=== PATIENT | female | born 1980 | race African-American/Black ===

== ENCOUNTER 2020-06-09 23:45 | Inpatient (IN) | payer OTHER ==
[2020-06-10] MEDS ORDERED: ELECTROLYTE-148 SOLN 1,000 ML IV SCH (00:15)
--- NOTE | 2020-06-10 00:18 | HP ---
Past Medical History - Primary Care Physician PCP:: Salma Ying - Admission Chief Complaint: 39 yo EDC 07/13/2020. EGA 35.2 wks presents to LD c/o painful UC. Known twins - transverse/transverse History of Present Illness: 39 yo EDC 07/13/2020 EGA 35.2 wks presents to LD c/o painful UC Known twins - transverse/transverse in active labor History Source: Patient Limitations to Obtaining History: No Limitations - Past Medical History Renal/: Yes: Renal Calculi ...: 4 ...Para: 3 ... Weeks Gestation by Dates: 35 ...EDC by Dates: 07/13/20 ...EDC by Sono: 07/13/20 Heme/Onc: Yes: Anemia - Past Surgical History Past Surgical History: Yes: None Hx Myomectomy: No Hx Transabdominal Cerclage: No - Smoking History Have you smoked in the past 12 months: No - Alcohol/Substance Use Hx Alcohol Use: No History of Substance Use: reports: None - Social History Usual Living Arrangement: Yes: With Spouse ADL: Independent History of Recent Travel: No Home Medications - Allergies Allergies/Adverse Reactions: Allergies Allergy/AdvReac Type Severity Reaction Status Date / Time No Known Allergies Allergy Verified 06/10/20 00:30 Family Medical History Family History: Unremarkable Review of Systems - Review of Systems Constitutional: reports: No Symptoms Eyes: reports: No Symptoms HENT: reports: No Symptoms Neck: reports: No Symptoms Cardiovascular: reports: No Symptoms Respiratory: reports: No Symptoms Gastrointestinal: reports: No Symptoms Genitourinary: reports: Pain Breasts: reports: No Symptoms Reported Musculoskeletal: reports: No Symptoms Integumentary: reports: No Symptoms Neurological: reports: No Symptoms Endocrine: reports: No Symptoms Hematology/Lymphatic: reports: No Symptoms Psychiatric: reports: No Symptoms Physical Exam - Maternity Constitutional: Yes: Well Nourished, No Distress Eyes: Yes: WNL HENT: Yes: WNL Neck: Yes: WNL Cardiovascular: Yes: WNL Breast(s): Yes: WNL - Abdominal Exam/OB Fundal Height: 38 Number of Fetuses: Multiple Presentation: Transverse Contractions: Yes Regularity: Regular Intensity: Moderate Monitor Mode: External Heart Rate (range): 130-140 Heart Rate Location: LLQ (NST reactive), RUQ Category: I Accelerations: Uniform Decelerations: None - Vaginal Exam/OB Vaginal Bleeding: No Dilatation (cm): 6 Effacement (%): 100 Amniotic Membrane Status: Bulging Presentation: Transverse/Shoulder - Physical Exam Musculoskeletal: Yes: WNL Extremities: Yes: WNL Edema: Yes Deep Tendon Reflex Grade: Normal +2 ...Motor Strength: WNL Psychiatric: Yes: WNL Hemorrhage Risk Assessment - Risk Factors Medium Risk Factors: Yes: Multiple gestation, Greater than 4 previous births Risk Score: 2 Risk Level: High Risk Problem List - Problems (1) AMA (advanced maternal age) multigravida 35+ Code(s): O09.529 - SUPERVISION OF ELDERLY MULTIGRAVIDA, UNSPECIFIED TRIMESTER (2) Twin gestation in third trimester Code(s): O30.003 - TWIN PREG, UNSP NUM PLCNTA & AMNIO SACS, THIRD TRIMESTER (3) 35 weeks gestation of Code(s): Z3A.35 - 35 WEEKS GESTATION OF (4) Malpresentation before onset of labor Code(s): O32.9XX0 - MATERNAL CARE FOR MALPRESENTATION OF FETUS, UNSP, UNSP Assessment/Plan Admit to LD Cesarian delivery Hydration Labs terbutaline 0.25cgm
[2020-06-10] MEDS ORDERED: TERBUTALINE SULFATE 1 MG/1 ML VIAL SQ ONE (00:37)
[2020-06-10 00:49] LABS: BASO % 0.2 % (0-2.0); EOS % 0.1 % (0-4.5); HEMATOCRIT 28.6 % (32.4-45.2); HEMOGLOBIN 9.6 GM/dL (10.7-15.3); LYMPH % 19.4 % (8-40); MCH 30.2 pg (25.7-33.7); MCHC 33.7 g/dl (32.0-36.0); MEAN CELL VOLUME 89.6 fl (80-96); MONO % 6.8 % (3.8-10.2); NEUT % 73.5 % (42.8-82.8); PLATELET COUNT 197 K/MM3 (134-434); RBC 3.19 M/mm3 (3.60-5.2); RDW 14.1 % (11.6-15.6); WHITE BLOOD COUNT 11.8 K/mm3 (4.0-10.0)
[2020-06-10] MEDS ORDERED: ONDANSETRON 4 MG/2 ML VIAL IVPUSH PRN (01:02)
[2020-06-10] MEDS ORDERED: IBUPROFEN 600 MG TABLET (FP) PO PRN (01:02)
[2020-06-10] MEDS ORDERED: ACETAMINOPHEN 325 MG TABLET (FP) PO PRN (01:02)
[2020-06-10 01:03] LABS: INR 0.98 (0.83-1.09); PROTHROMBIN TIME (PATIENT) 11.6 SEC (9.7-13.0)
[2020-06-10] MEDS ORDERED: morphine SULFATE/PF 0.5 MG/ML (2cc Syringe - QUVA) ONE (01:04)
[2020-06-10 01:08] LABS: BLOOD UREA NITROGEN 5.8 mg/dL (7-18); CALCIUM 8.8 mg/dL (8.5-10.1); CREATININE 0.5 mg/dL (0.55-1.3)
[2020-06-10 01:13] LABS: POTASSIUM 3.3 mmol/L (3.5-5.1)
[2020-06-10] MEDS ORDERED: OXYTOCIN 10 UNITS/ML VIAL ONE ×4 (01:21→02:03)
[2020-06-10] MEDS ORDERED: ceFAZolin SODIUM 1 GM VIAL ONE ×2 (01:21)
[2020-06-10] MEDS ORDERED: METHYLERGONOVINE MALEATE 0.2 MG/1 ML AMP IM PRN (02:07)
[2020-06-10] MEDS ORDERED: oxyCODONE HCL 5 MG TABLET PO PRN (02:07)
--- NOTE | 2020-06-10 02:18 | OP ---
Operative Note - Note: Operative Date: 06/10/20 Pre-Operative Diagnosis: 39 yo @ 35.2 wks Twin gestation transverse/transverse in labor Operation: LTCS via Pfannenstiel Incision Post-Operative Diagnosis: Same as Pre-op Surgeon: Salma Ying Customer Service Agent: Lanny Oconnor Anesthesiologist/MOLD WASHER: Jordan Nielson Anesthesia: Spinal Specimens Removed: Placenta and membranes Estimated Blood Loss (mls): 800 Fluid Volume Replaced (mls): 2,000 Operative Report Dictated: No
[2020-06-10] MEDS ORDERED: OXYTOCIN 20 UNITS in 0.9% NS 20 UNIT/1,000 ML INFUS.BAG IV ONE ×3 (02:28→12:33)
[2020-06-10] MEDS ORDERED: ONDANSETRON 4 MG/2 ML VIAL ONE (03:19)
[2020-06-10 04:08] VITALS: BMI 25.5
[2020-06-10] MEDS: ACETAMINOPHEN 1000 MG/100 ML VIAL (NON FORMULARY) IVPB PRN ×2 (05:38→11:36)
[2020-06-10] MEDS ORDERED: ACETAMINOPHEN INJECTION 100 ML IVPB ONE ×2 (05:40→11:21)
[2020-06-10 06:32] LABS: CORD BASE EXCESS -6.7 mmol/L (0-2); CORD HCO3 20.8 mmHg (20-29); CORD PCO2 48.2 mmHg (30-78); CORD pH 7.252 (7.14-7.44)
[2020-06-10 06:35] LABS: CORD HCO3 21.2 mmHg (20-29); CORD PCO2 58.4 mmHg (30-78); CORD pH 7.178 (7.14-7.44)
[2020-06-10] MEDS ORDERED: CEFAZOLIN 1 GM/D5W 1 GM/50 ML BAG ONE (09:46)
[2020-06-10] MEDS: CEFAZOLIN 1 GM/D5W 1 GM/50 ML BAG IVPB SCH ×2 (09:51→18:18)
[2020-06-10] MEDS: ENOXAPARIN NA (PORCINE) 40 MG/0.4 ML DISP.SYRIN SQ SCH (14:15)
[2020-06-10] MEDS: IBUPROFEN 600 MG TABLET (FP) PO PRN ×2 (16:39→22:06)
[2020-06-10] MEDS: SIMETHICONE 80 MG TAB.CHEW (FP) PO PRN (22:06)
[2020-06-10] MEDS: ACETAMINOPHEN 325 MG TABLET (FP) PO PRN (22:06)
[2020-06-10] MEDS: SENNOSIDES/DOCUSATE COMBO (SENNA PLUS) TABLET (UD) PO PRN (22:07)
[2020-06-11] MEDS: CEFAZOLIN 1 GM/D5W 1 GM/50 ML BAG IVPB SCH (01:25)
[2020-06-11 08:06] LABS: BASO % 0.1 % (0-2.0); EOS % 0.1 % (0-4.5); HEMATOCRIT 29.6 % (32.4-45.2); LYMPH % 10.8 % (8-40); MCH 29.3 pg (25.7-33.7); MCHC 33.7 g/dl (32.0-36.0); MEAN CELL VOLUME 86.9 fl (80-96); MEAN PLT VOLUME 8.7 fl (7.5-11.1); MONO % 5.2 % (3.8-10.2); NEUT % 83.8 % (42.8-82.8); PLATELET COUNT 218 K/MM3 (134-434); RBC 3.41 M/mm3 (3.60-5.2); WHITE BLOOD COUNT 18.5 K/mm3 (4.0-10.0)
--- NOTE | 2020-06-11 08:53 | PN ---
Progress Note (short form) - Note Progress Note: 39yo F, s/p spinal for C/S. pt doing well w/o complaints. pain controlled. good result of anesthetic care.
[2020-06-11] MEDS: ENOXAPARIN NA (PORCINE) 40 MG/0.4 ML DISP.SYRIN SQ SCH (09:06)
[2020-06-11] MEDS: BISACODYL 10 MG SUPP.RECT RC PRN (09:07)
[2020-06-11] MEDS: IBUPROFEN 600 MG TABLET (FP) PO PRN ×2 (09:14→16:58)
[2020-06-11] MEDS: ACETAMINOPHEN 325 MG TABLET (FP) PO PRN (09:15)
[2020-06-11] MEDS: SIMETHICONE 80 MG TAB.CHEW (FP) PO PRN ×2 (09:16→16:59)
--- NOTE | 2020-06-11 12:02 | PN ---
Post Progress Note Type of Delivery: Primary C/S Vital Signs: Vital Signs Temperature 98.8 F 06/11/20 10:00 Pulse Rate 85 06/11/20 10:00 Respiratory Rate 17 06/11/20 10:00 Blood Pressure 110/61 06/11/20 10:00 O2 Sat by Pulse Oximetry (%) 98 06/10/20 18:44 Breast Exam: Yes: Soft Uterus: Yes: Fundus Firm, Fundus above umbilicus Abdomen/GI: Yes: Abdomen soft, Abdominal Distention Lochia: Yes: Rubra Lochia, amount: Small Extremities: Yes: Calves non-tender Activity: Ambulating - Labs Labs: CBC WBC 18.5 K/mm3 (4.0-10.0) H 06/11/20 07:49 RBC 3.41 M/mm3 (3.60-5.2) L 06/11/20 07:49 Hgb 10.0 GM/dL (10.7-15.3) L 06/11/20 07:49 Hct 29.6 % (32.4-45.2) L 06/11/20 07:49 MCV 86.9 fl (80-96) 06/11/20 07:49 MCH 29.3 pg (25.7-33.7) 06/11/20 07:49 MCHC 33.7 g/dl (32.0-36.0) 06/11/20 07:49 RDW 14.0 % (11.6-15.6) 06/11/20 07:49 Plt Count 218 K/MM3 (134-434) 06/11/20 07:49 MPV 8.7 fl (7.5-11.1) 06/11/20 07:49 Absolute Neuts (auto) 15.5 K/mm3 (1.5-8.0) H 06/11/20 07:49 Neutrophils % 83.8 % (42.8-82.8) H 06/11/20 07:49 Lymphocytes % 10.8 % (8-40) D 06/11/20 07:49 Monocytes % 5.2 % (3.8-10.2) 06/11/20 07:49 Eosinophils % 0.1 % (0-4.5) 06/11/20 07:49 Basophils % 0.1 % (0-2.0) 06/11/20 07:49 Nucleated RBC % 0 % (0-0) 06/11/20 07:49 Problem List - Problems (1) AMA (advanced maternal age) multigravida 35+ Code(s): O09.529 - SUPERVISION OF ELDERLY MULTIGRAVIDA, UNSPECIFIED TRIMESTER (2) Twin gestation in third trimester Code(s): O30.003 - TWIN PREG, UNSP NUM PLCNTA & AMNIO SACS, THIRD TRIMESTER (3) 35 weeks gestation of Code(s): Z3A.35 - 35 WEEKS GESTATION OF (4) Malpresentation before onset of labor Code(s): O32.9XX0 - MATERNAL CARE FOR MALPRESENTATION OF FETUS, UNSP, UNSP Assessment/Plan Ambulate Regular diet
[2020-06-12] MEDS: SIMETHICONE 80 MG TAB.CHEW (FP) PO PRN (01:31)
[2020-06-12] MEDS: ACETAMINOPHEN 325 MG TABLET (FP) PO PRN ×2 (01:31→10:33)
[2020-06-12] MEDS: IBUPROFEN 600 MG TABLET (FP) PO PRN ×2 (01:32→16:06)
[2020-06-12] MEDS: SENNOSIDES/DOCUSATE COMBO (SENNA PLUS) TABLET (UD) PO PRN (01:34)
[2020-06-12] MEDS: BISACODYL 10 MG SUPP.RECT RC PRN (06:01)
[2020-06-12] MEDS: ENOXAPARIN NA (PORCINE) 40 MG/0.4 ML DISP.SYRIN SQ SCH (10:34)
--- NOTE | 2020-06-12 17:21 | PN ---
Post Progress Note - Subjective Subjective: pt c/o incisional pain Post Day: 2 Type of Delivery: Primary C/S Vital Signs: Vital Signs Temperature 97.5 F L 06/12/20 14:00 Pulse Rate 59 L 06/12/20 14:00 Respiratory Rate 18 06/12/20 14:00 Blood Pressure 114/72 06/12/20 14:00 O2 Sat by Pulse Oximetry (%) 100 06/12/20 14:00 Breast Exam: Yes: Soft Uterus: Yes: Fundus Firm, Fundus below umbilicus Incision: Yes: Sutures intact Abdomen/GI: Yes: Abdomen soft, Abdominal Distention, Tender Lochia: Yes: Rubra Lochia, amount: Small Extremities: Yes: Calves non-tender Activity: Ambulating - Labs Labs: CBC WBC 18.5 K/mm3 (4.0-10.0) H 06/11/20 07:49 RBC 3.41 M/mm3 (3.60-5.2) L 06/11/20 07:49 Hgb 10.0 GM/dL (10.7-15.3) L 06/11/20 07:49 Hct 29.6 % (32.4-45.2) L 06/11/20 07:49 MCV 86.9 fl (80-96) 06/11/20 07:49 MCH 29.3 pg (25.7-33.7) 06/11/20 07:49 MCHC 33.7 g/dl (32.0-36.0) 06/11/20 07:49 RDW 14.0 % (11.6-15.6) 06/11/20 07:49 Plt Count 218 K/MM3 (134-434) 06/11/20 07:49 MPV 8.7 fl (7.5-11.1) 06/11/20 07:49 Absolute Neuts (auto) 15.5 K/mm3 (1.5-8.0) H 06/11/20 07:49 Neutrophils % 83.8 % (42.8-82.8) H 06/11/20 07:49 Lymphocytes % 10.8 % (8-40) D 06/11/20 07:49 Monocytes % 5.2 % (3.8-10.2) 06/11/20 07:49 Eosinophils % 0.1 % (0-4.5) 06/11/20 07:49 Basophils % 0.1 % (0-2.0) 06/11/20 07:49 Nucleated RBC % 0 % (0-0) 06/11/20 07:49 Problem List - Problems (1) AMA (advanced maternal age) multigravida 35+ Code(s): O09.529 - SUPERVISION OF ELDERLY MULTIGRAVIDA, UNSPECIFIED TRIMESTER (2) Twin gestation in third trimester Code(s): O30.003 - TWIN PREG, UNSP NUM PLCNTA & AMNIO SACS, THIRD TRIMESTER (3) 35 weeks gestation of Code(s): Z3A.35 - 35 WEEKS GESTATION OF (4) Malpresentation before onset of labor Code(s): O32.9XX0 - MATERNAL CARE FOR MALPRESENTATION OF FETUS, UNSP, UNSP Assessment/Plan Ambulate Regular diet
[2020-06-13] MEDS: IBUPROFEN 600 MG TABLET (FP) PO PRN ×2 (02:43→17:07)
[2020-06-13] MEDS: ACETAMINOPHEN 325 MG TABLET (FP) PO PRN ×2 (02:43→17:17)
[2020-06-13] MEDS: SIMETHICONE 80 MG TAB.CHEW (FP) PO PRN (02:45)
[2020-06-13 08:14] LABS: BASO % 0.2 % (0-2.0); EOS % 0.5 % (0-4.5); HEMATOCRIT 25.9 % (32.4-45.2); HEMOGLOBIN 8.7 GM/dL (10.7-15.3); LYMPH % 24.5 % (8-40); MCH 29.5 pg (25.7-33.7); MCHC 33.4 g/dl (32.0-36.0); MEAN CELL VOLUME 88.1 fl (80-96); MEAN PLT VOLUME 8.6 fl (7.5-11.1); MONO % 6.7 % (3.8-10.2); NEUT % 68.1 % (42.8-82.8); PLATELET COUNT 249 K/MM3 (134-434); RBC 2.94 M/mm3 (3.60-5.2); WHITE BLOOD COUNT 8.4 K/mm3 (4.0-10.0)
--- NOTE | 2020-06-13 15:16 | PN ---
Post Progress Note Post Day: 3 Type of Delivery: Primary C/S Vital Signs: Vital Signs Temperature 98.4 F 06/12/20 22:00 Pulse Rate 60 06/12/20 22:00 Respiratory Rate 18 06/12/20 22:00 Blood Pressure 123/50 L 06/12/20 22:00 O2 Sat by Pulse Oximetry (%) 100 06/12/20 14:00 Breast Exam: Yes: Soft Uterus: Yes: Fundus Firm, Fundus below umbilicus Incision: Yes: Sutures intact Abdomen/GI: Yes: Abdomen soft, Tender Lochia: Yes: Rubra Lochia, amount: Small Extremities: Yes: Calves non-tender Activity: Ambulating () - Labs Labs: CBC WBC 8.4 K/mm3 (4.0-10.0) 06/13/20 07:32 RBC 2.94 M/mm3 (3.60-5.2) L 06/13/20 07:32 Hgb 8.7 GM/dL (10.7-15.3) L 06/13/20 07:32 Hct 25.9 % (32.4-45.2) L 06/13/20 07:32 MCV 88.1 fl (80-96) 06/13/20 07:32 MCH 29.5 pg (25.7-33.7) 06/13/20 07:32 MCHC 33.4 g/dl (32.0-36.0) 06/13/20 07:32 RDW 14.0 % (11.6-15.6) 06/13/20 07:32 Plt Count 249 K/MM3 (134-434) 06/13/20 07:32 MPV 8.6 fl (7.5-11.1) 06/13/20 07:32 Absolute Neuts (auto) 5.7 K/mm3 (1.5-8.0) 06/13/20 07:32 Neutrophils % 68.1 % (42.8-82.8) 06/13/20 07:32 Lymphocytes % 24.5 % (8-40) D 06/13/20 07:32 Monocytes % 6.7 % (3.8-10.2) 06/13/20 07:32 Eosinophils % 0.5 % (0-4.5) D 06/13/20 07:32 Basophils % 0.2 % (0-2.0) 06/13/20 07:32 Nucleated RBC % 0 % (0-0) 06/13/20 07:32 Problem List - Problems (1) AMA (advanced maternal age) multigravida 35+ Code(s): O09.529 - SUPERVISION OF ELDERLY MULTIGRAVIDA, UNSPECIFIED TRIMESTER (2) Twin gestation in third trimester Code(s): O30.003 - TWIN PREG, UNSP NUM PLCNTA & AMNIO SACS, THIRD TRIMESTER (3) 35 weeks gestation of Code(s): Z3A.35 - 35 WEEKS GESTATION OF (4) Malpresentation before onset of labor Code(s): O32.9XX0 - MATERNAL CARE FOR MALPRESENTATION OF FETUS, UNSP, UNSP Assessment/Plan Ambulate Regular diet
[2020-06-13] MEDS: ENOXAPARIN NA (PORCINE) 40 MG/0.4 ML DISP.SYRIN SQ SCH (17:19)
--- NOTE | 2020-06-14 08:50 | DS ---
Physical Exam-SURFACING TECHNICIAN Vital Signs: Vital Signs Temperature 98.2 F 06/13/20 22:00 Pulse Rate 60 06/13/20 22:00 Respiratory Rate 20 06/13/20 22:00 Blood Pressure 125/68 06/13/20 22:00 O2 Sat by Pulse Oximetry (%) 100 06/12/20 14:00 Constitutional: Yes: Well Nourished, No Distress Eyes: Yes: WNL HENT: Yes: WNL Neck: Yes: WNL Cardiovascular: Yes: WNL Respiratory: Yes: WNL Gastrointestinal: Yes: WNL ...Rectal Exam: Yes: Deferred ....Post : Yes: Slight lochia rubra Breast(s): Yes: WNL Musculoskeletal: Yes: WNL Extremities: Yes: WNL Edema: No Integumentary: Yes: WNL Wound/Incision: Yes: Clean/Dry, Sutures Intact, Open to air Neurological: Yes: WNL ...Motor Strength: WNL Psychiatric: Yes: WNL Labs: CBC, BMP 06/13/20 07:32 06/10/20 00:01 Delivery - Delivery Vaginal Delivery: Other (twins - transverse/transverse) Section: Primary Type of Anesthesia: Spinal Episiotomy/Laceration: None EBL (cc): 800 Delivery, Single - Stages of Labor Placenta: Yes: Spontaneous - Condition of Laundry Worker/Meat Hostess Present: Yes Gender: Female - Feeding Plan Initial Plan: Elected not to breastfeed exclusively throughout hospitalization Delivery, Multiple Births - Condition of Multiple Births 1 (A) Laundry Worker/Meat Hostess Present: Yes Laundry Worker: Cassie Willis Gender: Female Weight: 2.155 kg Total Hours ROM (HRS/MINS): 1 MINUTE Placenta: Yes: Spontaneous [place] 2 (B) Laundry Worker/Meat Hostess Present: Yes Laundry Worker: Cassie Willis Gender: Female Weight: 2.381 kg Total Hours ROM (HRS/MINS): 2 MINUTES - 1 Minute Score: 8 5 Minutes Score: 8 Discharge Summary Problems reviewed: Yes Reason For Visit: LABOR ADMIT Current Active Problems 35 weeks gestation of (Acute) AMA (advanced maternal age) multigravida 35+ (Acute) Malpresentation before onset of labor (Acute) Twin gestation in third trimester (Acute) Procedures: Principal: LTCS Hospital Course: stable Anemia on Ferrous sulfate Condition: Good - Instructions Diet, Activity, Other Instructions: regular Ambulate BM normal daily Disposition: HOME
[2020-06-14] MEDS: ENOXAPARIN NA (PORCINE) 40 MG/0.4 ML DISP.SYRIN SQ SCH (09:20)
[2020-06-14] MEDS: ACETAMINOPHEN 325 MG TABLET (FP) PO PRN (09:26)
[2020-06-14] MEDS: IBUPROFEN 600 MG TABLET (FP) PO PRN (09:27)
[2020-06-14] MEDS: SIMETHICONE 80 MG TAB.CHEW (FP) PO PRN (09:28)
[2020-06-14 12:04] VITALS: BP 135/76; PULSE 50; TEMP 98.3
--- NOTE | 2020-06-15 17:05 | PATH ---
Surgical Pathology Report Patient Name: SUSHMA FIELDS Med. Rec. #: [id number] /Age/Gender: 1980 (Age: 39) / F Account: [id number] Location: [facility] OBS/TRUST OFFICER Taken: 06/10/2020 Received: 06/11/2020 Reported: 06/15/2020 Physicians: Salma Ying M.D. Specimen(s) Received PLACENTA Clinical History 39-year-old , denies any history Final Diagnosis PLACENTA, SECTION: SEPARATE DISCS TWIN PLACENTA. PLACENTA A , 367 G THIRD TRIMESTER PLACENTA WITH TRIVASCULAR UMBILICAL CORD AND UNREMARKABLE PLACENTAL MEMBRANES. PLACENTA B , 406 G THIRD TRIMESTER PLACENTA WITH TRIVASCULAR UMBILICAL CORD AND UNREMARKABLE PLACENTAL MEMBRANES. Electronically Signed Lien Humphrey M.D. Gross Description A. Received in formalin labeled "placenta," is a twin placenta comprised of 2 separate discs, joined by dividing membranes. The dividing membranes are guadalupe and opaque. There is 1 clamp marking the umbilical cord of placenta "A" and 2 clamps marking the umbilical cord of placenta "B", per the surgeon. Placenta "A" is 367 g and measures 17.5 x 16.0 x 2.2 cm. The attached membranes are guadalupe, translucent with focal opacities and insert marginally. The umbilical cord measures 18 cm in length and averages 0.9 cm in diameter. The cord inserts eccentrically, 4.5 cm to the nearest margin. No true knots or strictures are identified. Cut surface of the umbilical cord reveals 3 vessels. The surface is morrison blue with moderate fibrin deposition and appropriate caliber vessels. The maternal surface is red-brown with focal defects. Sectioning reveals red-brown, spongy parenchyma. No lesions are identified. Placenta "B" is 406 g and measures 18.0 x 15.5 x 2.4 cm. The attached membranes are guadalupe, translucent with focal opacities and insert marginally. The umbilical cord measures 10 cm in length and averages 1 cm in diameter. The cord inserts centrally. No true knots or strictures are identified. Cut surface of the umbilical cord reveals 3 vessels. The surface is mckee blue with moderate fibrin deposition and appropriate caliber vessels. The maternal surface is red-brown with focal defects. Sectioning reveals red-brown, spongy parenchyma. No lesions are identified. Skid Strapper sections are submitted in 7 cassettes as follows: 1-placenta "A" membrane roll and umbilical cord; 2-3-full thickness sections of placenta "A"; 4-dividing membranes; 5-placenta "B" membrane roll and umbilical cord; 6-7-full thickness sections of placenta "B". 06/14/2020 [facility]06/14/2020
--- NOTE | 2020-06-19 12:12 | OP ---
DATE OF OPERATION: 06/10/2020 PREOPERATIVE DIAGNOSIS: A 39-year-old 4, para 3 at 35.2 weeks, twin gestation transverse-transverse in labor. POSTOPERATIVE DIAGNOSIS: A 39-year-old 4, para 3 at 35.2 weeks, twin gestation transverse-transverse in labor. PROCEDURE: Primary low transverse section via Pfannenstiel incision. SURGEON: Sheree Ambrose MD WET CHAR CONVEYOR TENDER: Lanny Oconnor MD ANESTHESIA: Jordan Nielson MD, spinal SPECIMEN: Placenta and membranes. ESTIMATED BLOOD LOSS: 800 mL. FLUIDS REPLACED: Ringer's lactate 2000 mL. URINE OUTPUT: Clear urine 300 mL at the end of the procedure. INDICATION: A 39-year-old G4, para 3 at 35.2 weeks, twin gestation, transverse-transverse, in labor. FINDINGS: Baby girls delivered as transverse. 's 9, 9 for twin A and 8, 8 for twin B. Normal uterus, tubes and ovaries. PROCEDURE: The patient was taken to the operating room where spinal anesthesia was administered without complication. She was then prepped and draped in the usual sterile fashion in dorsal supine position with a leftward tilt. A Pfannenstiel skin incision was made with a scalpel and carried through to underlying layer of fascia with the Bovie. The fascia was incised in the midline and the incision extended laterally with Agustin scissors. The superior and inferior aspect of fascial incision was grasped with Kristan clamps, elevated and the underlying rectus muscles dissected off bluntly. The rectus muscles were then in the midline. The peritoneum identified, tented up and entered sharply with Metzenbaum scissors. The peritoneal incision was extended superiorly and inferiorly with good visualization of the bladder. The bladder blade was then inserted and the vesicouterine peritoneum identified, grasped with pickups and entered sharply with Metzenbaum scissors. This incision was then extended laterally and the bladder flap created digitally. The bladder blade was then reinserted, the lower uterine segment incised in transverse fashion with a scalpel. The uterine incision was then extended laterally with bandage scissors. The bladder blade was removed and the twin A delivered atraumatically as breech. The nose and mouth were suctioned and the cord clamped and cut. Attention was turned to the second twin which was transverse and delivered as breech also. The baby's nose and mouth were suctioned, and handed off to the waiting humid system operator. Cord gases and blood were sent for both twins. Placenta was then removed manually. The uterus exteriorized and cleared of all clots and debris. Uterine incision was repaired with 1-0 chromic in a running locked fashion. Second layer of the same suture was used to obtain excellent hemostasis. The bladder flap was repaired with 2-0 chromic in a running stitch. The gutters were clear and the uterus returned to the abdomen. The peritoneum closed with 2-0 chromic. Fascia was reapproximated with 0 Vicryl in a running fashion and the skin was closed with 4-0 Vicryl in subcuticular fashion. The patient tolerated the procedure well. Sponge, lap, needle counts were correct x2. The patient was taken to recovery room in stable condition. SHEREE AMBROSE MD RP/[id number]
== END 2020-06-14 11:00 | disposition home or self-care (01) | DRG 788 ==
LOC: JLDR 23:45 → J3W 06-10 12:56
PROVIDERS: ADMIT Obstetrics & Gynecology; ATTEND Obstetrics & Gynecology
PROC: 10D00Z1 Extraction of Products of Conception, Low, Open Approach (ICD-10-PCS; principal; 2020-06-10)
DX: O30.043 Twin pregnancy, dichorionic/diamniotic, third trimester (principal); Z3A.35 35 weeks gestation of pregnancy; Z37.2 Twins, both liveborn
CPT/HCPCS: 36415; 36600; 80048; 82803; 85025; 85610; 85730; 86850; 86900; 86901; 87389; 88307-TC; J0131; U0003